=== PATIENT | male | born 1995 | race Caucasian/White ===

== ENCOUNTER 2017-03-09 17:28 | Emergency (ER) | payer SELFPAY ==
[~2017-03-09] VITALS: Ht 182.9 cm; Wt 79.5 kg
[2017-03-09 17:34] VITALS: Ht 182.9 cm; Wt 79.5 kg
--- NOTE | 2017-03-09 18:48 | RADRPT ---
PROCEDURE: XR Chest. CLINICAL INDICATION: Chest pain. TECHNIQUE: 2 frontal views of the chest. COMPARISON: None. FINDINGS: The cardiomediastinal silhouette is within normal limits. The lungs are clear. No signs of pleural f luid or pneumothorax are seen. The osseous structures and soft tissues are unremarkable. IMPRESSION: No evidence for active cardiopulmonary disease. RPTAT: [facility] Physician Yessi Date Time Electronically viewed and signed by Physician Yessi on 03/09/2017 18:47 RS/
--- NOTE | 2017-03-09 19:01 | ERD ---
ER Documentation Chief Complaint Chief Complaint unprovoked, cp since last night w/tingling down both arms ROS All systems reviewed and are negative except as per history of present illness. Medications Home Meds Discontinued Reported Medications [None] No Conflict Check 07/30/11 Allergies Allergies: Coded Allergies: ibuprofen (Verified Allergy, Mild, SWELLING, 03/09/17) PMhx/Soc Medical and Surgical Hx: pt denies Medical Hx, pt denies Surgical Hx History of Surgery: Yes (LEFT KNEE SURGERY) Anesthesia Reaction: No Hx Neurological Disorder: No Hx Respiratory Disorders: No Hx Cardiac Disorders: No Hx Psychiatric Problems: No Hx Miscellaneous Medical Probl: No Hx Alcohol Use: Yes (rarely) Hx Substance Use: No Hx Tobacco Use: No Smoking Status: Never smoker Physical Exam Vitals Vital Signs Date Time Temp Pulse Resp B/P Pulse Ox O2 Delivery O2 Flow Rate FiO2 03/09/17 18:07 66 16 161/84 99 Room Air 03/09/17 17:34 98.2 65 18 152/75 99 Physical Exam Const: [] Head: Atraumatic Eyes: Normal Conjunctiva ENT: Normal External Ears, Nose and Mouth. Neck: Full range of motion..~ No meningismus. Resp: Clear to auscultation bilaterally Cardio: Regular rate and rhythm, no murmurs Abd: Soft, non tender, non distended. Normal bowel sounds Skin: No petechiae or rashes Back: No midline or flank tenderness Ext: No cyanosis, or edema Neur: Awake and alert Psych: Normal Mood and Affect Results 24 hrs Laboratory Tests Test 03/09/17 18:51 Bedside Glucose 83mg/dL [facility] EKG #1 read by me: Rate/Rhythm: Incomplete right bundle branch block at a rate of 57 Intervals: Normal Impression: Incomplete right bundle branch block without ischemia EKG #2 read by me: Rate/Rhythm: Incomplete right bundle branch block at a rate of 56 Intervals: Normal Impression: Incomplete right bundle branch block without ischemia Chest x-ray negative per radiology. Accu-Chek is normal. Patient is a 21-year-old male who presents with near syncope and chest pain. He is young and otherwise healthy. I do not believe he requires further workup or admission the hospital at this time. He had 2 EKGs which did not show signs of ischemia. Chest x-ray was negative for pneumonia or pneumothorax. Accu- Chek was normal. At this point I doubt acute coronary syndrome, pneumonia, pneumothorax, pulmonary embolism, or aortic dissection. The patient will be discharged home but will need to follow-up with the local clinics within 24-48 hours as he does not currently have a primary doctor. The patient can return for any worsening symptoms. Departure Diagnosis: Primary Impression: Near syncope Additional Impression: Chest pain Chest pain type: unspecified Qualified Code: R07.9 - Chest pain, unspecified type Condition: Fair Patient Instructions: Chest Pain, Uncertain Cause Referrals: [facility] YOU HAVE RECEIVED A MEDICAL SCREENING EXAM AND THE RESULTS INDICATE THAT YOU DO NOT HAVE A CONDITION THAT REQUIRES URGENT TREATMENT IN THE EMERGENCY DEPARTMENT. FURTHER EVALUATION AND TREATMENT OF YOUR CONDITION CAN WAIT UNTIL YOU ARE SEEN IN YOUR DOCTORS OFFICE WITHIN THE NEXT 1-2 DAYS. IT IS YOUR RESPONSIBILITY TO MAKE AN APPOINTMENT FOR FOLOW-UP CARE. IF YOU HAVE A PRIMARY DOCTOR --you should call your primary doctor and schedule an appointment IF YOU DO NOT HAVE A PRIMARY DOCTOR YOU CAN CALL OUR PHYSICIAN REFERRAL HOTLINE AT IF YOU CAN NOT AFFORD TO SEE A PHYSICIAN YOU CAN CHOSE FROM THE FOLLOWING [facility] [address] [facility]. [facility] [address] [facility]. [facility] [address] [facility] [facility] [address] [facility]. [facility] [address] [facility]. [facility]. [address] Additional Instructions: Call your primary care doctor TOMORROW for an appointment during the next 1-2 days.See the doctor sooner or return here if your condition worsens before your appointment time. NEGRITA DE LEON MD Mar 09, 2017 19:01
[2017-03-09 19:02] VITALS: BP 126/68; PULSE 48; RESP 12
[2017-03-09] MEDS ORDERED: DOCU-144 PO (19:03)
[2017-03-09] MEDS ORDERED: SENN-53 PO (19:03)
== END 2017-03-09 19:29 | disposition home or self-care (01) ==
LOC: E/R 17:28
DX: R55 Syncope and collapse (principal)
CPT/HCPCS: 71010; 82962; 93005

== ENCOUNTER 2018-01-03 01:38 | Emergency (ER) | END 2018-01-03 03:49 | disposition home or self-care (01) ==

== ENCOUNTER 2018-01-10 02:38 | Emergency (ER) | END 2018-01-10 04:13 | disposition home or self-care (01) ==

== ENCOUNTER 2018-03-19 13:34 | Day surgery (SDC) | END 2018-03-19 16:53 | disposition home or self-care (01) ==